=== PATIENT | female | born 1975 | race Caucasian/White ===

== ENCOUNTER → 2019-03-23 | Outpatient (CLI) | payer OTHER ==
--- NOTE | 2019-03-24 10:12 | XR ---
EXAM TYPE: LUMBAR SPINE X RAY SERIES COMPARISON: NONE HISTORY: Pain TECHNIQUE: 3 views are submitted. FINDINGS: Alignment is anatomic. The pedicles are intact. The transverse processes are intact. There is no s pondylolysis or spondylolisthesis. Postsurgical changes in the pelvis noted. Mild multilevel degener ative disc disease with minimal spurring. No compression deformities. IMPRESSION: 1. Mild multilevel degenerative disc disease. If there is concern for disc herniation correlate with MRI.
--- NOTE | 2019-03-24 10:13 | XR ---
EXAMINATION TYPE: XR pelvis AP view DATE OF EXAM: 03/23/2019 COMPARISON: NONE HISTORY: Pain The osseous structures are intact and the joint spaces are preserved. No acute fracture is seen. Vi sualized bowel gas pattern is nonspecific. Postsurgical changes in the pelvis noted. Moderate concen tric narrowing of the hip joints. IMPRESSION: 1. No acute fracture. 2. Moderate arthropathy of the hip joints
== END | disposition home or self-care (01) ==
LOC: RADXRMAIN 16:59
PROVIDERS: ATTEND Family Medicine
DX: M51.37 Other intervertebral disc degeneration, lumbosacral region (principal); M16.0 Bilateral primary osteoarthritis of hip
CPT/HCPCS: 72100; 72170